=== PATIENT | female | born 1960 | race Caucasian/White ===

== ENCOUNTER 2023-09-11 06:20 | Inpatient (IN) | payer OTHER, SELFPAY ==
--- NOTE | 2023-08-08 08:55 | CM ---
Patient is scheduled for an elective L TKR on 09/11/23. Spoke with patient prior to surgery via telephone. Introduced role of Orthopedic Navigator. Patient reports that she lives alone in a one floor apartment. There are five steps to enter the
building and then 15 steps to her apartment. She currently functions independently. She has a cane. She has never had VN services. PCP is Roxy Naylor.
Discussed orthopedic program and post surgical plans. Reviewed anticipated length of stay and that goal is for her to return home at discharge. Also reviewed outpatient PT. Patient is in agreement with tentative plan and will go directly to
outpatient PT at [facility]. A friend will be staying with her for a week.
Patient will complete online education.
Plan: Orthopedic Navigator will remain available to assist with the care of patient and will reassess discharge needs after surgery.
[2023-08-19 09:43] LABS: Hematocrit 38.3 % (37.0-47.0); Hemoglobin 11.9 g/dL (12.0-16.0); Mean Corp Hgb Conc. 31.1 g/dL (33.0-37.0); Mean Corpuscular Hgb 29.1 pg (27.0-31.0); Mean Corpuscular Volume 93.6 fL (81.0-99.0); Mean Platelet Volume 11.6 fL (7.4-10.4); Platelet Count 187 10^3/uL (130-400); Red Blood Cell Count 4.09 10^6/uL (4.20-5.40); Red Cell Dist. Width 13.9 % (11.5-14.5); White Blood Cell Count 5.3 10^3/uL (4.8-10.8)
[2023-08-19 10:02] VITALS: BMI 24.2
[2023-08-19 10:29] LABS: ALT (SGPT) 21 U/L (0-35); AST (SGOT) 22 U/L (14-36); Albumin 3.6 g/dl (3.5-5.0); Alkaline Phosphatase 73 U/L (38-126); Blood Urea Nitrogen 16 mg/dl (7-17); Calcium 8.8 mg/dl (8.4-10.2); Carbon Dioxide 23 mmol/L (22-30); Chloride 112 mmol/L (98-107); Estimated Creatinine Clearance 87 ml/min; Glucose 110 mg/dl (70-99); Potassium 3.5 mmol/L (3.5-5.1); Sodium 139 mmol/L (135-145); Total Bilirubin 0.3 mg/dl (0.2-1.3); Total Protein 6.2 g/dl (6.3-8.2); eGFR > 60.00
[2023-08-19 11:28] LABS: Glycohemoglobin (HgbA1c) 5.4 % (4.0-5.6)
[2023-08-19 14:55] VITALS: BMI 24.2
[2023-09-11] VITALS (12 sets, daily range): BP systolic 104–149; BP diastolic 49–86; BMI 24.2
[2023-09-11] MEDS: NORMOSOL-R 1000 IV ×2 (08:27→12:29)
[2023-09-11] MEDS: VANCOCIN 200 IV (08:27)
[2023-09-11] MEDS: TYLENOL 650 MG PO ×5 (08:29→23:54)
[2023-09-11] MEDS: CELEBREX 200 MG PO (08:30)
[2023-09-11] MEDS: ROXICODONE 5 MG PO ×2 (12:40→17:36)
--- NOTE | 2023-09-11 13:12 | W.PN.ORTHO ---
Today's Communication / Plan
-
D/c when clinically stable.
Assessment
.
Distal Motor Intact: Yes
Dressing:
Clean, dry and intact.
Assessment:
L knee OA s/p L TKA w/ Dr Israel 09/11/23
DVT prophylaxis - ASA, b/l venous foot pumps
PACs and PVCs with palpitations
Nonsustained ventricular tachycardia, on Atenolol
- Monitor on tele
- Continue Atenolol
Asthma, moderate and persistent, and BAIRON, compliant with CPAP (setting 12) - monitor O2
- IS
- Resume inhalers/nebs
- Resume CPAP HS
GERD and Hiatal hernia - continue PPI therapy
Irritable bowel syndrome with diarrhea - Colace ONLY initially for post-op bowel regimen
TIA per records, on Aspirin - continue ASA but at 325 mg dosing x4 weeks for DVT prevention
Multilevel degenerative disc disease with radiculopathy - resume Gabapentin, Duloxetine
Chronic iron deficiency anemia - non-invasive hgb in AM
Fibromyalgia - monitor pain and adjust meds as indicated
- Consider ER opioids should IR Oxycodone be ineffective
G6PD deficiency - full dose ASA OK per PCP for DVT prevention
MRSA positive nasal screen 08/19/2023 - will add IV Vanco in addition to IV Ancef
- Continue nasal Mupirocin x2 weeks post-op as incision heals
Hyperlipidemia
Mild mitral regurgitation
Mitral valve prolapse
Colon polyps
Hepatic cysts
Nephrolithiasis
Migraines
Probable narcolepsy
Hypothyroidism
Recent UTI, 08/29/2023, treated with Levofloxacin
Osteoporosis
Depression
Plan
.
Surgery / Date: L TKA w/ Dr Israel 09/11/23
DVT Prophylaxis: Aspirin
Activity:
Out of bed.
PT/OT
Discharge Plan: Home w/ Outpatient PT
Subjective
.
.:
Patient resting comfortably in bed.
L knee pain currently minimal and well tolerated.
Denies any new significant complaints.
Vital Signs and Labs
.
Vital Signs and Labs:
Lab Results
08/19/23 09:12
08/19/23 09:12
Temp Pulse Resp BP Pulse Ox
97.4 F 61 15 124/64 100
09/11/23 11:55 09/11/23 12:53 09/11/23 12:53 09/11/23 12:53 09/11/23 12:53
Physical Exam
-
HEENT: No pallor, cyanosis, or jaundice. Throat clear.
NECK: Supple. No JVD.
RESPIRATORY: Lungs clear to auscultation.
CVS: S1, S2 normal. RRR.�
ABDOMEN: Soft, non-tender. No distension.
EXTREMITIES: Strength equal, no calf pain with palpation/dorsiflexion. Calves soft.
MOTOR VEHICLE EMISSIONS INSPECTOR: AOx3. No focal deficits. sequins slinger grossly intact
[2023-09-11] MEDS: VITAMIN B-12 1000 MCG PO (14:19)
[2023-09-11] MEDS: CLARITIN 10 MG PO (14:20)
[2023-09-11] MEDS: VITAMIN D3 (cholecalciferol) 125 MCG PO (14:20)
[2023-09-11] MEDS: SYNTHROID 75 MCG PO (14:20)
[2023-09-11] MEDS: NON-FORMULARY ITEM 150 MG PO (17:34)
[2023-09-11] MEDS: NEURONTIN 300 MG PO ×2 (17:34→21:19)
[2023-09-11] MEDS: ASPIRIN 325 MG PO (17:36)
[2023-09-11] MEDS: CARAFATE 1 GRAM PO ×2 (17:36→21:19)
[2023-09-11] MEDS: ANCEF 5 IV (17:37)
[2023-09-11] MEDS: BENTYL PO (17:38)
--- NOTE | 2023-09-11 18:31 | PTCARENOTE ---
1330 pt arrived to floor TKR L drowsy but awake. RW 20g NormR 100, Aquacell to knee CDI. Regular diet. foot pumps/teds. Retrieved friends. bed low/HOB elevated. orientation to room. call marte in reach. meds sent to Pharmacy. Pt did still have Bentyl
at bedside and took byself after a lengthy discussion about the pills in weekly pill case she had that we did not know what they are. Did notify pharmacy.
[2023-09-11] MEDS: SYMBICORT 160/4.5 MCG INHALER 2 PUFF INH (19:52)
[2023-09-11] MEDS: PROTONIX 40 MG PO (21:19)
[2023-09-11] MEDS: DECADRON 4 MG PO (21:19)
[2023-09-11] MEDS: COLACE 100 MG PO (21:19)
[2023-09-11] MEDS: BACTROBAN 2% OINTMENT 1 APPLIC NASAL (21:21)
[2023-09-11] MEDS: BENTYL 20 MG PO (21:22)
[2023-09-11] MEDS: TENORMIN 50 MG PO (21:22)
[2023-09-11] MEDS: ROXICODONE 15 MG PO (21:23)
[2023-09-12] MEDS: ANCEF 5 IV (02:16)
[2023-09-12] MEDS: VANCOCIN 200 IV (02:25)
[2023-09-12] MEDS: ROXICODONE 10 MG PO ×3 (02:59→11:58)
[2023-09-12 03:00] VITALS: BP 118/46
[2023-09-12 04:52] LABS: Hematocrit 32.7 % (37.0-47.0); Hemoglobin 10.3 g/dL (12.0-16.0)
[2023-09-12] MEDS: TYLENOL PO (05:03)
--- NOTE | 2023-09-12 05:04 | PTCARENOTE ---
could non obtain non invasive due to pts blue gel nail serbian. tried other fingers, toe and ear. H&H ordered and drawn. awaiting results.
[2023-09-12] MEDS: SYNTHROID 75 MCG PO (05:40)
--- NOTE | 2023-09-12 07:31 | W.PN.ORTHO ---
Today's Communication / Plan
-
Plan for discharge home today after PT
Assessment
.
Distal Motor Intact: Yes
Dressing:
Clean, dry and intact.
Assessment:
Doing well post op
Plan
.
Surgery / Date: L TKA w/ Dr Israel 09/11/23
DVT Prophylaxis: Aspirin
Activity:
Out of bed.
PT/OT
Discharge Plan: Home w/ VN
Subjective
.
.:
Patient resting comfortably. OOB yesterday. Doing well today
Vital Signs and Labs
.
Vital Signs and Labs:
Lab Results
09/12/23 04:37
08/19/23 09:12
Temp Pulse Resp BP Pulse Ox
98.6 F 67 18 118/46 100
09/12/23 03:00 09/12/23 03:00 09/12/23 03:00 09/12/23 03:00 09/12/23 03:00
Physical Exam
-
Pulm: nonlabored
CV: regular
LLE: NVI distally. Able to fully extend. Calf soft. Dressing CDI
[2023-09-12] MEDS: SYMBICORT 160/4.5 MCG INHALER 2 PUFF INH (07:34)
[2023-09-12] MEDS: CLARITIN 10 MG PO (07:43)
[2023-09-12] MEDS: PROTONIX 40 MG PO (07:43)
[2023-09-12] MEDS: TYLENOL 650 MG PO ×2 (07:43→11:59)
[2023-09-12] MEDS: NEURONTIN 300 MG PO ×2 (07:43→12:00)
[2023-09-12] MEDS: VITAMIN D3 (cholecalciferol) 125 MCG PO (07:43)
[2023-09-12] MEDS: COLACE 100 MG PO (07:43)
[2023-09-12] MEDS: BACTROBAN 2% OINTMENT 1 APPLIC NASAL (07:43)
[2023-09-12] MEDS: ASPIRIN 325 MG PO (07:43)
[2023-09-12] MEDS: CYMBALTA DELAYED RELEASE 60 MG PO (07:43)
[2023-09-12] MEDS: DECADRON 4 MG PO (07:43)
[2023-09-12] MEDS: BENTYL 20 MG PO ×2 (07:44→12:00)
[2023-09-12] MEDS: MOBIC 15 MG PO (07:44)
[2023-09-12] MEDS: VITAMIN B-12 1000 MCG PO (07:44)
[2023-09-12] MEDS: CARAFATE 1 GRAM PO ×2 (07:44→12:00)
[2023-09-12 07:45] VITALS: BP 131/65
[2023-09-12] MEDS: NON-FORMULARY ITEM 150 MG PO (07:45)
--- NOTE | 2023-09-12 08:31 | CM ---
Addendum entered by Christina Henry 09/12/23 11:13:
Patient worked with PT and OT and did well. She has no concerns about going home. She has updated her friend.
Original Note:
Reviewed chart and held rounds with PT, OT and nursing. Patient admitted as planned for elective L TKR. Met with patient at bedside. Confirmed information previously obtained for assessment. Also discussed discharge plans. The plan is for patient to
return home at discharge. A friend will be staying with her for a week. Patient will go directly to outpatient PT and will go to [facility]. She has an appointment scheduled for Friday, 09/14.
Patient has a rolling walker, cane, raised toilet seat and shower seat.
She will use [facility] pharmacy for discharge prescriptions.
[2023-09-12 09:40] VITALS: PULSE 68; O2SAT 98
--- NOTE | 2023-09-12 09:42 | W.PN.ORTHO ---
Today's Communication / Plan
-
Await PT and OT recs.
D/c later today if remaining clinically stable.
Assessment
.
Distal Motor Intact: Yes
Dressing:
Clean, dry and intact.
Assessment:
L knee OA s/p L TKA w/ Dr Israel 09/11/23
DVT prophylaxis - ASA, b/l venous foot pumps
PACs and PVCs with palpitations
Nonsustained ventricular tachycardia, on Atenolol
- Maintaining NSR w/ occ monomorphic PVCs on tele
- Continue Atenolol
Asthma, moderate and persistent, and BAIRON, compliant with CPAP (setting 12) - O2 stable
- IS
- Resumed inhalers/nebs
- Resumed CPAP HS
GERD and Hiatal hernia - continue PPI therapy
Irritable bowel syndrome with diarrhea - Colace ONLY initially for post-op bowel regimen
TIA per records, on Aspirin - continue ASA but at 325 mg dosing x4 weeks for DVT prevention
Multilevel degenerative disc disease with radiculopathy - resumed Gabapentin, Duloxetine
Chronic iron deficiency anemia - hgb 10.3 POD 1
- Asymptomatic, hemodynamically stable
Fibromyalgia - pain well controlled by POD 1 w/ current pain meds
- Pain mgmt (Juan Miguel) to follow pain post-procedure
G6PD deficiency - full dose ASA OK per PCP for DVT prevention
MRSA positive nasal screen 08/19/2023 - added IV Vanco in addition to IV Ancef
- Continue nasal Mupirocin x2 weeks post-op as incision heals
Hyperlipidemia
Mild mitral regurgitation
Mitral valve prolapse
Colon polyps
Hepatic cysts
Nephrolithiasis
Migraines
Probable narcolepsy
Hypothyroidism
Recent UTI, 08/29/2023, treated with Levofloxacin
Osteoporosis
Depression
Plan
.
Surgery / Date: L TKA w/ Dr Israel 09/11/23
DVT Prophylaxis: Aspirin
Activity:
Out of bed.
PT/OT
Discharge Plan: Home w/ Outpatient PT
Subjective
.
.:
Patient resting comfortably in her bed this AM.
L knee pain overall well tolerated w/ current pain meds.
Denies any new significant complaints.
Eager for potential d/c today.
Vital Signs and Labs
.
Vital Signs and Labs:
Lab Results
09/12/23 04:37
08/19/23 09:12
Temp Pulse Resp BP Pulse Ox
98.5 F 66 16 131/65 95
09/12/23 07:45 09/12/23 07:45 09/12/23 07:45 09/12/23 07:45 09/12/23 08:00
Physical Exam
-
HEENT: No pallor, cyanosis, or jaundice. Throat clear.
NECK: Supple. No JVD.
RESPIRATORY: Lungs clear to auscultation.
CVS: S1, S2 normal. RRR.�
ABDOMEN: Soft, non-tender. No distension.
EXTREMITIES: Mild post-op L knee edema. Strength equal, no calf pain with palpation/dorsiflexion. Calves soft.
FUTURES TRADER: AOx3. No focal deficits. control analyst grossly intact
[2023-09-12 10:42] VITALS: BP 111/64
--- NOTE | 2023-09-12 11:16 | W.DS.TRANS ---
DC Summary - Car Mechanic
-
Discharge Instructions:
Discharge Diagnosis/Procedures L knee OA s/p L TKA w/ Dr Israel 09/11/23
Diet Regular
Activity As tolerated,With Walker
Driving Restrictions Not until seen by your Dr
Bathing Restrictions OK to Shower
Other Services PT
Wound Care Dressing to be removed 1 week post-surgery.
Coxsackie to be removed in 2 weeks at follow-up
appointment with surgeon's office.
Instructions:
Stand-Alone Forms: Total Hip/Knee Replacement D/C
Changes to Home Medications: Yes
Discharge Medications:
DC Medications w/original date entered in [employer]
atenolol 50 mg tablet 50 mg PO HS 08/03/10
gabapentin 300 mg capsule 300 mg PO QID 10/18/10
albuterol sulfate 1.25 mg/3 mL solution for nebulization 1.25 mg inhalation Q6HPRN PRN shortness of breath, wheezing 08/13/23
albuterol sulfate 90 mcg/actuation aerosol inhaler 1 inh inhalation Q6HPRN PRN shortness of breath, wheezing 08/13/23
armodafinil 150 mg tablet 150 mg PO DAILY 08/13/23
budesonide-formoterol HFA 160 mcg-4.5 mcg/actuation aerosol inhaler (Symbicort) 2 puff inhalation BID 08/13/23
cyanocobalamin (vitamin B-12) 1,000 mcg tablet 1,000 mcg PO DAILY 08/13/23
denosumab 60 mg/mL subcutaneous syringe (Prolia) 60 mg SC [id number] 08/13/23
dicyclomine 20 mg tablet 20 mg PO QID 08/13/23
duloxetine 60 mg capsule,delayed release 60 mg PO DAILY 08/13/23
erenumab-aooe 140 mg/mL subcutaneous auto-injector (Aimovig Autoinjector) 140 mg SC QMONTH 08/13/23
esomeprazole magnesium 40 mg capsule,delayed release 40 mg PO BID 08/13/23
levothyroxine 75 mcg tablet 75 mcg PO DAILY 08/13/23
sumatriptan 85 mg-naproxen 500 mg tablet (Treximet) 1 tab PO DAILYPRN PRN migraines 08/13/23
topiramate 200 mg capsule,extended release 24 hr (Trokendi XR) 200 mg PO DAILY 08/13/23
mxhdvbxyqv-wrtqrlpdvhjmh-ijohkdlt 50 mg-325 mg-40 mg tablet 1 tab PO Q4H PRN migraines 08/19/23
cholecalciferol (vitamin D3) 125 mcg (5,000 unit) tablet 125 mcg PO DAILY 08/19/23
elderberry fruit 200 mg capsule 200 mg PO DAILY 08/19/23
multivitamin 1 tab PO DAILY 08/19/23
mupirocin 2 % topical ointment 1 applic intranasal BID #1 tube 08/19/23
rimegepant 75 mg disintegrating tablet (Nurtec ODT) 75 mg PO ONCE PRN migraines 08/19/23
fluticasone propionate 50 mcg/actuation nasal spray,suspension 1 spray intranasal DAILY 09/11/23
loratadine 10 mg tablet (Claritin) 10 mg PO DAILY 09/11/23
sucralfate 1 gram tablet 1 g PO QID 09/11/23
acetaminophen 500 mg tablet (Tylenol Extra Strength) 1,000 mg (2 x 500 mg) PO Q6H #60 tabs 09/12/23
aspirin 325 mg tablet 325 mg PO DAILY #30 tabs 09/12/23
dexamethasone 4 mg tablet 4 mg PO BID #5 tabs 09/12/23
docusate sodium 100 mg capsule 100 mg PO BID #30 caps 09/12/23
meloxicam 15 mg tablet 15 mg PO DAILY #30 tabs 09/12/23
ondansetron HCl 4 mg tablet 4 mg PO Q6H PRN nausea and vomiting #30 tabs 09/12/23
oxycodone 10 mg tablet 10 mg PO Q4H PRN severe pain #120 tabs 09/12/23
sennosides 8.6 mg tablet (Senna Laxative) 17.2 mg (2 x 8.6 mg) PO BID PRN constipation #30 tabs 09/12/23
Home Medication Changes
acetaminophen 500 mg tablet (Tylenol Extra Strength) 1,000 mg (2 x 500 mg) PO Q6H #60 tabs 09/12/23
aspirin 325 mg tablet 325 mg PO DAILY #30 tabs 09/12/23
dexamethasone 4 mg tablet 4 mg PO BID #5 tabs 09/12/23
docusate sodium 100 mg capsule 100 mg PO BID #30 caps 09/12/23
meloxicam 15 mg tablet 15 mg PO DAILY #30 tabs 09/12/23
ondansetron HCl 4 mg tablet 4 mg PO Q6H PRN nausea and vomiting #30 tabs 09/12/23
oxycodone 10 mg tablet 10 mg PO Q4H PRN severe pain #120 tabs 09/12/23
sennosides 8.6 mg tablet (Senna Laxative) 17.2 mg (2 x 8.6 mg) PO BID PRN constipation #30 tabs 09/12/23
Pending Results: No
== END 2023-09-12 12:52 | disposition home or self-care (01) | DRG 470 ==
LOC: 2 SOUTH 06:20
PROVIDERS: ADMITTING PHYSICIAN Orthopaedic Surgery; FAMILY PHYSICIAN Nurse Practitioner
PROC: 0SRD0J9 Replacement of Left Knee Joint with Synthetic Substitute, Cemented, Open Approach (ICD-10-PCS; 2023-09-11)
DX: M17.12 Unilateral primary osteoarthritis, left knee (principal); I47.20 Ventricular tachycardia, unspecified; J45.40 Moderate persistent asthma, uncomplicated; K21.9 Gastro-esophageal reflux disease without esophagitis; K58.0 Irritable bowel syndrome with diarrhea; D75.A Glucose-6-phosphate dehydrogenase (G6PD) deficiency without anemia; E78.5 Hyperlipidemia, unspecified; I49.1 Atrial premature depolarization; I49.3 Ventricular premature depolarization; D50.9 Iron deficiency anemia, unspecified; M79.7 Fibromyalgia
CPT/HCPCS: 36415; 73560; 80053; 83036; 85014; 85018; 85027; 86850; 86900; 86901; 87070; 87147; 93005; 94640; 97110; 97116; 97162; 97166; 97530; 97535; C1713; C1776

== ENCOUNTER → 2023-11-04 06:26 | Day surgery (SDC) | payer OTHER, SELFPAY | LOC: GI 06:26 | PROVIDERS: ATTENDING PHYSICIAN Internal Medicine Gastroenterology | DX: Z12.11 Encounter for screening for malignant neoplasm of colon (principal); K57.30 Diverticulosis of large intestine without perforation or abscess without bleeding; K64.8 Other hemorrhoids; D51.0 Vitamin B12 deficiency anemia due to intrinsic factor deficiency; R12 Heartburn; K44.9 Diaphragmatic hernia without obstruction or gangrene; K31.89 Other diseases of stomach and duodenum; K22.89 Other specified disease of esophagus; K29.50 Unspecified chronic gastritis without bleeding; K31.A12 Gastric intestinal metaplasia without dysplasia, involving the body (corpus); K31.A13 Gastric intestinal metaplasia without dysplasia, involving the fundus; Z86.010 Personal history of colon polyps | CPT/HCPCS: 43239; G0105; 88305; 88312; 88342 ==

== ENCOUNTER 2023-12-03 21:43 | Emergency (ER) | payer OTHER, SELFPAY ==
[2023-12-03 21:47] VITALS: BP 124/68
--- NOTE | 2023-12-03 22:50 | ED.GENMED ---
History of Present Illness
General
Chief Complaint: Musculo-Skeletal Complaint
Source: patient
Exam Limitations: none
Time Seen by Provider: 12/03/23 22:21
History of Present Illness
History of Present Illness:
This is a 63 year old female that comes in with c/o right knee pain. States that she had her left knee replaced on September 11, 2023. States that she started to have some discomfort in the right knee. State that she also had fluid drained form the
right knee Twice. States that today she was at work and when she would move she would get this sudden discomfort in the right knee. States that after work she went to [employer] and she was walking cross the parking lot and she felt like her right knee
was going to give out. State that she was by her car so she did not fall. Denies any injuries or falls. Denies any fever, chills nausea, vomiting, diarrhea.
Past History
Past History
ED Past Medical History: Asthma, CVA (TIA), GERD (Celiac disease), Hypercholesterolemia, Hypothyroidism, Other (migraine headaches, and mini strokes, back pain, neck pain, tingling in the extremities, fractures, anemia, and G6PD deficient, Sleep
apnea, IBS, Celiac disease renal calculus) and Other (Iron Def anemia, B12 def, gastritis, )
ED Past Surgical History: Orthopedic (right ad left knee surgery, Right elbow surgery, Left and right carpal tunnel. right foot ORIF, Lumbar laminectomy. Left total knee replacement, ), Tonsilectomy and Other (arthroscopy of the knee, right elbow
surgery, carpal tunnel repair, left knee arthroscopy, multiple endoscopies, right foot open reduction and internal fixation, and lumbar laminectomy)
Social History
Tobacco: Non-smoker
Alcohol: Occasional
Drug: None
Personal: Single
Living: with family
Employment: Employed
Family History
Family History: Other
Review of Systems
Review of Systems
All Other Systems: ROS reviewed and negative except as documented in HPI and ROS
Constitutional: Reports no symptoms; Denies fever or chills
EENT: Reports no symptoms
Respiratory: Reports no symptoms
Cardiac: Reports no symptoms
ABD/GI: Reports no symptoms; Denies abdominal pain, nausea, vomiting or diarrhea
: Reports no symptoms
Musculoskeletal: Reports joint pain (Right knee pain)
Skin: Reports no symptoms
Neurological: Reports no symptoms
Psychiatric: Reports no symptoms
Phy Exam
General Physical Exam
General Presentation: well appearing and no apparent distress
General age: appears stated age
General Skin: warm and dry
General Habitus: normal
General Mental: alert
General Hydration: appears well hydrated
Eye Exam
Eye Exam: EOMI
Musculoskeletal Exam
Musculoskeletal Exam: full ROM and other (tenderness with palpation distal right knee medial and lateral with palpation)
Skin Exam
Skin Exam: normal color, warm/dry, no rash and no petechia
Psychiatric Exam
Psychiatric Exam: normal mood/affect
Course
Orders/Labs/Results
Orders:
Orders
12/03/23 21:53
Knee, Right 4 or More Views [CR Knee- Right 4 Or More View*] Urgent
Comment:
Reason For Exam: injury
12/03/23 22:50
Jagdeep Wrap Right-Treatment ONCE
Vital Signs
Initial and Last Documented VS:
Initial Vital Signs
Temp Pulse Resp BP Pulse Ox
98.4 F 72 20 124/68 99
12/03/23 21:47 12/03/23 21:47 12/03/23 21:47 12/03/23 21:47 12/03/23 21:47
Last Documented Vital Signs
Temp Pulse Resp BP Pulse Ox
98.4 F 72 20 124/68 99
12/03/23 21:47 12/03/23 21:47 12/03/23 21:47 12/03/23 21:47 12/03/23 21:47
MDM/Problems Addressed
Differential Diagnosis Includes:
Right knee degenerative changes.
MDM/Problems Addressed:
This is a 63 year old female that comes in with c/o right knee pain. Denies any falls or injury.
Will get X-ray.
Explained to patient that the x-ray was negative for any fractures or dislocation. Will give patient an jagdeep bandage for support and patient is to follow up with the ergonomic specialist. Patient can use Tylenol 1000mg every 6 hours for pain. She
can also use Ibuprofen 600mg every 6 hours with food for pain. Return with any concerns.
Chronic conditions affecting care:
NA
Acute Exacerbation and/or Progression of Chronic Illness:
NA
*Radiology
Radiology exam reviewed: radiology read reviewed (Right knee-Overall moderate tricompartmental osteoarthritis. )
*Pulse Oximetry
Patient hypoxic: no
*EKG
Interpreted by ED Provider?: NA
Rate: EKG- N/A
*Instrumentation And Controls Technician Interpretation
Rate: Instrumentation And Controls Technician- N/A
*Critical Care Note
Total Time (30-74mins, 75-104mins- exclusive of procedures): Not Applicable
ED Attending Note
-
Portions of this chart may have been created with voice recognition software.� Occasional wrong word or��sound alike� substitutions may have occurred due to the inherent limitations of voice recognition software.
Discharge Plan
Departure
Patient Disposition: Home (Routine Discharge)
Date of Disposition: 12/03/23
Time of Disposition: 22:59
Patient with high blood pressure during this ER visit?: No
Condition: Good
Covid-19: Not Applicable
Discharge Problem:
Acute knee pain, Osteoarthritis of right knee
Instructions: Knee Pain (DC)
Prescriptions:
No Action
atenolol 50 MG tablet
50 mg PO HS
gabapentin 300 MG capsule
300 mg PO QID
albuterol sulfate 1.25 mg/3 mL Solution For Nebulization
1.25 mg INHALATION Q6HPRN PRN (Reason: shortness of breath, wheezing)
cyanocobalamin (vitamin B-12) 1,000 mcg Tablet
1,000 mcg PO DAILY
levothyroxine 75 mcg Tablet
75 mcg PO DAILY
dicyclomine 20 mg Tablet
20 mg PO QID
esomeprazole magnesium 40 mg Capsule,Delayed Release(Dr/Ec)
40 mg PO BID
albuterol sulfate 90 mcg/actuation Hfa Aerosol Inhaler
1 inh INHALATION Q6HPRN PRN (Reason: shortness of breath, wheezing)
duloxetine 60 mg Capsule,Delayed Release(Dr/Ec)
60 mg PO DAILY
budesonide-formoterol [Symbicort] 160-4.5 mcg/actuation Hfa Aerosol Inhaler
2 puff INHALATION BID
armodafinil 150 mg Tablet
150 mg PO DAILY
sumatriptan-naproxen [Treximet] 85-500 mg Tablet
1 tab PO DAILYPRN PRN (Reason: migraines)
Prolia 60 mg/mL Syringe
60 mg SC [id number]
topiramate [Trokendi XR] 200 mg Capsule,Extended Release 24hr
200 mg PO DAILY
Aimovig Autoinjector 140 mg/mL Auto-Injector
140 mg SC QMONTH
irwegkmrgx-gmnnzyiaeooyy-drct 50-325-40 mg Tablet
1 tab PO Q4H PRN (Reason: migraines)
multivitamin Tablet
1 tab PO DAILY
elderberry fruit 200 mg Capsule
200 mg PO DAILY
cholecalciferol (vitamin D3) 125 mcg (5,000 unit) Tablet
125 mcg PO DAILY
Nurtec ODT 75 mg Tablet,Disintegrating
75 mg PO ONCE PRN (Reason: migraines)
mupirocin 2 % ointment
1 applic intranasal BID Qty: 1 0RF
Patient Comments:
Started treatment on Friday, taking BID. Last done at home this morning.
sucralfate 1 gram Tablet
1 g PO QID
fluticasone propionate 50 mcg/actuation [place],Suspension
1 spray INTRANASAL DAILY
loratadine [Claritin] 10 mg Tablet
10 mg PO DAILY
aspirin 325 mg Tablet
325 mg PO DAILY Qty: 30 0RF
Rx Instructions:
Take daily x4 weeks for blood clot prevention; then resume Aspirin 81 mg daily.
dexamethasone 4 mg Tablet
4 mg PO BID Qty: 5 0RF
Rx Instructions:
Restart night of discharge and continue twice a day until finished.
Take with food.
docusate sodium 100 mg Capsule
100 mg PO BID Qty: 30 0RF
meloxicam 15 mg Tablet
15 mg PO DAILY Qty: 30 0RF
Rx Instructions:
Take with food.
DO NOT take within 2 hours of Aspirin.
sennosides [Senna Laxative] 8.6 mg Tablet
17.2 mg PO BID PRN (Reason: constipation) Qty: 30 0RF
Rx Instructions:
Add to bowel regimen of Colace should no bowel movement occur within 72 hours post-surgery.
ondansetron HCl 4 mg tablet
4 mg PO Q6H PRN (Reason: nausea and vomiting) Qty: 30 0RF
acetaminophen [Tylenol Extra Strength] 500 mg tablet
1,000 mg PO Q6H Qty: 60 0RF
Rx Instructions:
DO NOT exceed >4000 mg daily.
oxycodone 10 mg tablet
10 mg PO Q4H PRN (Reason: severe pain) Qty: 120 0RF
Rx Instructions:
1 tab for severe pain.
Dx total joint.
Referrals:
Leif Israel MD [Active] - Call in 1-3 days for appt
Roxy Naylor CRNP [Family Provider] -
Activity Restrictions/Additional Instructions:
As discussed, your X-ray is negative for any fractures or dislocation. There is some osteoarthritis. Please follow up with Dr. Israel for further evaluation. Use the jagdeep to help give your support when you are up walking around. Ice to help with
pain. You may also use Tylenol 1000mg every 6 hours for pain and alternate with Ibuprofen 600mg every 6 hours with food. IF YOU HAVE ANY OTHER CONCERNS PLEASE RETURN TO THE EMERGENCY ROOM.
Interventions
Interventions:
*Risk Screen - Suicide Last Done: 12/03/23 21:47
*General Assessment Last Done: 12/03/23 21:47
*Neglect/Abuse Screening Last Done: 12/03/23 21:47
ED- Fall Risk Assessment Last Done: 12/03/23 21:47
*ED COVID-19 Vaccine History Last Done: 12/03/23 21:47
ED-Musculoskeletal Assessment Last Done: 12/03/23 22:42
Discharge Date and Time
Print Language: TURKISH
[2023-12-03] MEDS: TYLENOL 1000 MG PO (23:00)
== END 2023-12-03 23:11 | disposition home or self-care (01) ==
LOC: EMR 21:43
PROVIDERS: EMERGENCY PHYSICIAN Emergency Medicine; FAMILY PHYSICIAN Nurse Practitioner
DX: M17.11 Unilateral primary osteoarthritis, right knee (principal)
CPT/HCPCS: 99283; 73564

== ENCOUNTER 2024-07-02 06:01 | Inpatient (IN) | payer OTHER, SELFPAY ==
[2024-06-17 11:14] LABS: Hematocrit 40.4 % (37.0-47.0); Hemoglobin 12.5 g/dL (12.0-16.0); Mean Corp Hgb Conc. 30.9 g/dL (33.0-37.0); Mean Corpuscular Hgb 29.3 pg (27.0-31.0); Mean Corpuscular Volume 94.6 fL (81.0-99.0); Mean Platelet Volume 11.1 fL (7.4-10.4); Platelet Count 192 10^3/uL (130-400); Red Blood Cell Count 4.27 10^6/uL (4.20-5.40); Red Cell Dist. Width 14.2 % (11.5-14.5); White Blood Cell Count 4.7 10^3/uL (4.8-10.8)
[2024-06-17 11:27] LABS: ALT (SGPT) 16 U/L (0-35); AST (SGOT) 20 U/L (14-36); Albumin 3.8 g/dl (3.5-5.0); Alkaline Phosphatase 78 U/L (38-126); Blood Urea Nitrogen 18 mg/dl (7-17); Calcium 8.6 mg/dl (8.4-10.2); Carbon Dioxide 24 mmol/L (22-30); Chloride 107 mmol/L (98-107); Glucose 112 mg/dl (70-99); Sodium 141 mmol/L (135-145); Total Bilirubin 0.5 mg/dl (0.2-1.3); Total Protein 6.5 g/dl (6.3-8.2); eGFR > 60.00
[2024-06-17 14:23] LABS: Glycohemoglobin (HgbA1c) 5.2 % (4.0-5.6)
[2024-06-17 14:25] VITALS: BMI 23.0
[2024-06-24 13:32] VITALS: BMI 23.0
[2024-07-02] VITALS (34 sets, daily range): BP systolic 66–138; BP diastolic 41–87; PULSE 73; O2SAT 95
[2024-07-02] MEDS: TYLENOL 650 MG PO ×5 (06:28→23:08)
[2024-07-02] MEDS: MOBIC 15 MG PO (06:28)
[2024-07-02] MEDS: VANCOCIN 200 IV ×2 (06:35→17:15)
[2024-07-02] MEDS: NORMOSOL-R/PLASMALYTE-A 1000 IV ×2 (06:43→14:45)
[2024-07-02] MEDS: ROXICODONE 5 MG PO (11:37)
--- NOTE | 2024-07-02 12:28 | W.PN.UPDATE ---
Update Note
Progress Note Update
R knee OA s/p R TKA w/ Dr Israel 07/02/24
- s/p L TKA w/ Dr Israel 09/11/23
DVT prophylaxis - ASA, b/l venous foot pumps
PACs and PVCs with palpitations
Nonsustained ventricular tachycardia, on Atenolol
- Monitor on tele
- Continue Atenolol
Asthma, moderate and persistent, and BAIRON, compliant with CPAP (setting 12) - monitor O2
- IS
- Resume inhalers/nebs
- Resume CPAP HS
GERD and Hiatal hernia - continue PPI therapy
Irritable bowel syndrome with diarrhea - Colace ONLY initially for post-op bowel regimen
TIA per records, on Aspirin - continue ASA but at 325 mg dosing x4 weeks for DVT prevention
Multilevel degenerative disc disease with radiculopathy - resume Duloxetine
- Substitute Lyrica for Gabapentin given probable tolerance
Chronic iron deficiency anemia - non-invasive hgb in AM
Fibromyalgia - monitor pain and adjust meds as indicated
- Consider ER opioids should IR Oxycodone be ineffective
G6PD deficiency - full dose ASA OK per PCP previously for DVT prevention
MRSA positive nasal screen 08/19/2023 - will add IV Vanco in addition to IV Ancef
- Continue nasal Mupirocin x2 weeks post-op as incision heals
Hyperlipidemia
Mild mitral regurgitation
Mitral valve prolapse
Colon polyps
Hepatic cysts
Nephrolithiasis
Migraines
Narcolepsy
Hypothyroidism
Recent UTI, 08/29/2023, treated with Levofloxacin
Osteoporosis
Depression
--- NOTE | 2024-07-02 14:23 | PTCARENOTE ---
Pt arrived to 2S in bed. Full assessment completed. Neurovascular assessment WDL. R knee DSG C/D/I. Pt c/o urge to urinate, assisted to bathroom Ax1 with the RW, gait steady. IVF infusing per order. Telemetry applied. Bed locked and in the lowest
position, safety maintained. Pt working with PT/OT at this time.
[2024-07-02] MEDS: BENTYL PO ×2 (14:35→14:36)
[2024-07-02] MEDS: TYLENOL PO (14:36)
[2024-07-02] MEDS: PROTONIX PO (14:36)
[2024-07-02] MEDS: SYNTHROID PO (14:36)
[2024-07-02] MEDS: CYMBALTA DELAYED RELEASE 60 MG PO (14:42)
[2024-07-02] MEDS: LYRICA 75 MG PO ×2 (14:42→19:49)
[2024-07-02] MEDS: VITAMIN D3 (cholecalciferol) 125 MCG PO (14:42)
[2024-07-02] MEDS: VITAMIN B-12 1000 MCG PO (14:42)
[2024-07-02] MEDS: CLARITIN 10 MG PO (14:43)
[2024-07-02] MEDS: ROXICODONE 10 MG PO (14:48)
--- NOTE | 2024-07-02 15:37 | W.PN.UPDATE ---
Update Note
Progress Note Update
Patient stable postop. Has been OOB and in the hallway. VSS. Pulm: nonlaobored. CV: regular. Abd: benign. RLE: NVI distally. Calf soft. Able to fully extend. Postop xray as expected. ASA for DVT prophylaxis. Plan for discharge home
tomorrow with outpatient PT.
[2024-07-02] MEDS: ANCEF 5 IV ×2 (16:08→22:54)
[2024-07-02] MEDS: BENTYL 20 MG PO ×2 (17:15→22:40)
[2024-07-02] MEDS: ASPIRIN 325 MG PO (17:15)
[2024-07-02] MEDS: DECADRON 4 MG PO (19:49)
[2024-07-02] MEDS: COLACE 100 MG PO (19:49)
[2024-07-02] MEDS: PROTONIX 40 MG PO (19:50)
[2024-07-02] MEDS: BACTROBAN 2% OINTMENT 1 APPLIC NASAL (22:54)
[2024-07-03] VITALS (7 sets, daily range): BP systolic 88–138; BP diastolic 52–62; PULSE 82; O2SAT 100
[2024-07-03] MEDS: NSS 500 IV (00:16)
--- NOTE | 2024-07-03 02:20 | W.PN.UPDATE ---
Update Note
Progress Note Update
RN reported PRODUCT SAFETY EXPERT BP soft 86/41 HR 70. Patient seen and evaluated, asymptomatic, states she hasn't been drinking enough. Surgical site scant amount of blood noted which is unchanged from previous shift, otherwise CDI. will order nss 500 cc bolus.
Recheck BP 110/62, patient resting in bed, no complaints at this time.
--- NOTE | 2024-07-03 02:21 | PTCARENOTE ---
2300 Patient BP 86/[address] Quique Watson Atenolol on hold patient is not symptomatic and surgical site looks good. bolus given and BP increased to 110/62. will continue to monitor
[2024-07-03] MEDS: ROXICODONE 10 MG PO ×3 (04:23→13:09)
[2024-07-03] MEDS: TYLENOL 650 MG PO ×3 (04:25→12:17)
[2024-07-03] MEDS: SYNTHROID 75 MCG PO (06:11)
--- NOTE | 2024-07-03 08:05 | W.PN.ORTHO ---
Today's Communication / Plan
-
64-year-old female status post right total knee arthroplasty postoperative day [address] Israel
-Asymptomatic hypotension overnight improved with fluid bolus and presently resolved. Will continue with fluid hydration p.o.
-PT/OT/discharge planning: Doing well with inpatient physical therapy. Plan for discharge to home with outpatient physical therapy beginning Friday
-DVT PPx: Aspirin, early ambulation, sequential compression devices in the hospital
-Diet: Regular
-Pain controlled with current regimen
Pending course of today plan for discharge; discharge information up-to-date. Medications received at preoperative history and physical appointment
Assessment
.
Distal Motor Intact: Yes
Dressing:
Clean, dry and intact. Minimal central strikethrough
Assessment:
Postoperative x-rays show status post right total knee arthroplasty patellar resurfacing without evidence of hardware or osseous complication
Plan
.
Surgery / Date: 07/02/[address] Israel
DVT Prophylaxis: Aspirin
Activity:
Out of bed.
PT/OT
Discharge Plan: Home w/ Outpatient PT
Subjective
.
.:
Patient resting comfortably. She reports asymptomatic hypertension and evening which was improved with a bolus of fluid
Vital Signs and Labs
.
Vital Signs and Labs:
Lab Results
06/17/24 10:35
06/17/24 10:35
Temp Pulse Resp BP Pulse Ox
97.9 F 75 16 120/59 96
07/03/24 08:00 07/03/24 08:00 07/03/24 08:00 07/03/24 08:00 07/03/24 08:00
[2024-07-03] MEDS: BENTYL 20 MG PO (08:34)
[2024-07-03] MEDS: LYRICA 75 MG PO (08:39)
[2024-07-03] MEDS: MOBIC 15 MG PO (08:39)
[2024-07-03] MEDS: COLACE 100 MG PO (08:40)
[2024-07-03] MEDS: DECADRON 4 MG PO (08:40)
[2024-07-03] MEDS: PROTONIX 40 MG PO (08:40)
[2024-07-03] MEDS: CLARITIN 10 MG PO (08:40)
[2024-07-03] MEDS: ASPIRIN 325 MG PO (08:41)
[2024-07-03] MEDS: VITAMIN D3 (cholecalciferol) 125 MCG PO (08:41)
[2024-07-03] MEDS: VITAMIN B-12 1000 MCG PO (08:41)
[2024-07-03] MEDS: CYMBALTA DELAYED RELEASE 60 MG PO (08:41)
[2024-07-03] MEDS: BACTROBAN 2% OINTMENT 1 APPLIC NASAL (12:17)
--- NOTE | 2024-07-03 12:58 | PTCARENOTE ---
had lite breakfast, thus far is tolerating. no N/V. comfortable. walking self to bathroom
--- NOTE | 2024-07-03 14:39 | CM ---
Initial assessment completed with pt at bedside.
Pt is a 64yr old female admitted with R TKA.
At baseline, pt lives alone in a 1 floor apartment with 5 steps into the building and 15 steps to her apartment.
Pt had previous L TKA in 06/2023 and dc with Outpt therapy services.
Prior to this admission, pt is indep.
Pt has cane, RW, raised toilet seat, and shower chair
PCP; Roxy Naylor
Pharm; [facility]
PLAN; DC to home with outpt therapy services
== END 2024-07-03 13:59 | disposition home or self-care (01) | DRG 470 ==
LOC: 2 SOUTH 06:01
PROVIDERS: ADMITTING PHYSICIAN Orthopaedic Surgery; FAMILY PHYSICIAN Nurse Practitioner
PROC: 0SRC0J9 Replacement of Right Knee Joint with Synthetic Substitute, Cemented, Open Approach (ICD-10-PCS; 2024-07-02)
DX: M17.11 Unilateral primary osteoarthritis, right knee (principal)
CPT/HCPCS: 36415; 73560; 80053; 83036; 85027; 87070; 93005; 97110; 97162; 97166; 97535

== ENCOUNTER 2025-02-10 21:08 | Emergency (ER) | payer OTHER, SELFPAY ==
[2025-02-10 21:13] VITALS: BP 152/76
--- NOTE | 2025-02-10 22:42 | ED.GENMED ---
History of Present Illness
General
Chief Complaint: Back Pain
Source: patient
Exam Limitations: none
Time Seen by Provider: 02/10/25 22:16
Nursing documentation reviewed up to this point in time: agreed with
History of Present Illness
History of Present Illness:
Patient is a 64-year-old female who presents to emergency department with right lower back pain. Patient reports 2 weeks of progressively worsening pain which seems to originate in her right buttock and radiates down her right lateral leg into her
calf. Pain is worse with prolonged standing and certain movements. She also feels that she has been developing some weakness in the right leg over the past week.
Patient denies any fever or chills. No saddle paresthesias, loss of bowel/bladder control, or numbness in bilateral lower extremities. She denies any visual complaints, headache, chest pain, or shortness of breath.
She has been taking NSAIDs, Tylenol, and Percocet at home with temporary relief in pain.
Patient denies any known inciting injury or trauma. However�benoit does have a lengthy history of chronic back pain and has had spinal surgery in the past. Fortunately�benoit does have an appointment with her spinal surgeon scheduled this coming Friday.
Past History
Past History
ED Past Medical History: Asthma, CVA (TIA), GERD (Celiac disease), Hypercholesterolemia, Hypothyroidism, Other (migraine headaches, and mini strokes, back pain, neck pain, tingling in the extremities, fractures, anemia, and G6PD deficient, Sleep
apnea, IBS, Celiac disease renal calculus) and Other (Iron Def anemia, B12 def, gastritis, )
ED Past Surgical History: Orthopedic (right ad left knee surgery, Right elbow surgery, Left and right carpal tunnel. right foot ORIF, Lumbar laminectomy. Left total knee replacement, ), Tonsilectomy and Other (arthroscopy of the knee, right elbow
surgery, carpal tunnel repair, left knee arthroscopy, multiple endoscopies, right foot open reduction and internal fixation, and lumbar laminectomy)
Social History
Tobacco: Non-smoker
Alcohol: Occasional
Drug: None
Personal: Single
Living: with family
Employment: Employed
Family History
Family History: Other
Review of Systems
Review of Systems
Allergies reviewed?: Yes
All Other Systems: ROS reviewed and negative except as documented in HPI and ROS
Phy Exam
Physical Exam
Physical Exam:
Vitals: Hypertensive, otherwise vital signs stable. Afebrile
General: Patient is resting comfortably on examination.
Skin: Warm and dry, no rashes or lesions
Head: Normocephalic, atraumatic
Eyes: Sclera nonicteric. EOMs intact. No nystagmus.
Throat: Protecting airway
Neck: Normal ROM, no cervical spine tenderness, no meningismus
Cardiac: Regular rate and rhythm, no murmurs. 2+ palpable radial pulses bilaterally
Pulm: Normal respiratory effort, no wheezes, rales, rhonchi heard on exam
Abdomen: Abdomen soft and nontender.
Back: No areas of obvious ecchymoses or rash. Point tenderness in right buttock near SI joint. Positive straight leg raise on right side.
Extremities: No evidence of cyanosis or edema. 2+ palpable DP pulses bilateral. Strength 4/5 in RLE. Strength 5/5 in LLE. Sensation intact
Neuro: AAOx3. No focal neurologic deficits.
Psychiatric: Normal affect.
Course
Orders/Labs/Results
Orders:
Orders
02/10/25 22:41
Acetaminophen [Tylenol] 650 mg PO NOW STA
Ketorolac [Toradol] 15 mg IM NOW STA
Lumbar Spine, 2 or 3 View [CR Lumbar Spine 2 Or 3 Views] Urgent
Comment:
Reason For Exam: Right buttock pain
02/10/25 23:35
Tramadol HCl [Ultram] 50 mg PO NOW STA
Vital Signs
Initial and Last Documented VS:
Initial Vital Signs
Temp Pulse Resp BP Pulse Ox
98.2 F 77 16 152/76 97
02/10/25 21:13 02/10/25 21:13 02/10/25 21:13 02/10/25 21:13 02/10/25 21:13
Last Documented Vital Signs
Temp Pulse Resp BP Pulse Ox
98.2 F 72 17 130/72 97
02/11/25 02:04 02/11/25 02:04 02/11/25 02:04 02/11/25 02:04 02/11/25 02:04
MDM/Problems Addressed
Differential Diagnosis Includes:
Not limited to: Radicular pain/sciatica, lumbar muscle strain, spinal stenosis, etc.
MDM/Problems Addressed:
64-year-old female with progressively worsening right lower back pain radiating into right leg. Some associated mild weakness of right leg however no difficulty ambulating. No infectious symptoms or urinary symptoms. No other neurological symptoms
including numbness of extremities, bowel/bladder incontinence, saddle paresthesia. No recent trauma. She does have lengthy history of chronic back pain and follows with spinal surgeon.
Vitals and physical exam as above.
Clinical picture most consistent with musculoskeletal back pain with radicular component. No evidence of acute neurological emergency or vascular catastrophe. Do not suspect infectious process.
ED plan: lumbar spine x-ray, treat pain and reassess.
Update: I reviewed xray of lumbar spine without evidence of acute fracture. Patient was given Toradol, Tylenol and a tramadol in emergency department. Her pain is down to a 3/10 and she has been able to ambulate steadily.
Feel patient is appropriate for discharge home with scheduled spine surgeon appointment on Friday. Will start course of steroids for suspected radicular component. Will send prescription for tramadol. Strict return precautions discussed. Patient
comfortable with plan.
Chronic conditions affecting care:
N/A
Acute Exacerbation and/or Progression of Chronic Illness:
N/A
*Radiology
Radiology exam reviewed: preliminary read by ED provider (Lumbar x-ray reviewed by me-no acute fracture)
*Pulse Oximetry
SaO2: 97
Oxygen Mode of Delivery: Room air
Patient hypoxic: no
*EKG
Interpreted by ED Provider?: NA
*Panel Edge Sealer Interpretation
Rate: Panel Edge Sealer- N/A
*Critical Care Note
Total Time (30-74mins, 75-104mins- exclusive of procedures): Not Applicable
ED Attending Note
-
Portions of this chart may have been created with voice recognition software.� Occasional wrong word or��sound alike� substitutions may have occurred due to the inherent limitations of voice recognition software.
Discharge Plan
Departure
Patient Disposition: Home (Routine Discharge)
Date of Disposition: 02/11/25
Time of Disposition: 01:08
Patient with high blood pressure during this ER visit?: Yes
Condition: Good
Discharge Problem:
Low back pain radiating to right leg
Instructions: Low Back Pain (DC), Radiculopathy (DC), BLOOD PRESSURE
Prescriptions:
New
prednisone 20 mg tablet
40 mg PO DAILY 5 Days Qty: 10 0RF
tramadol 50 mg tablet
50 mg PO Q6H PRN (Reason: Pain) Qty: 10 0RF
No Action
atenolol 50 MG tablet
50 mg PO HS
gabapentin 300 MG capsule
300 mg PO QID
albuterol sulfate 1.25 mg/3 mL Solution For Nebulization
1.25 mg INHALATION Q6HPRN PRN (Reason: shortness of breath, wheezing)
cyanocobalamin (vitamin B-12) 1,000 mcg Tablet
1,000 mcg PO DAILY
levothyroxine 75 mcg Tablet
75 mcg PO DAILY
dicyclomine 20 mg Tablet
20 mg PO QID
esomeprazole magnesium 40 mg Capsule,Delayed Release(Dr/Ec)
40 mg PO BID
albuterol sulfate 90 mcg/actuation Hfa Aerosol Inhaler
1 inh INHALATION Q6HPRN PRN (Reason: shortness of breath, wheezing)
duloxetine 60 mg Capsule,Delayed Release(Dr/Ec)
60 mg PO DAILY
armodafinil 150 mg Tablet
150 mg PO DAILY
Prolia 60 mg/mL Syringe
60 mg SC [id number]
topiramate [Trokendi XR] 200 mg Capsule,Extended Release 24hr
200 mg PO DAILY
Aimovig Autoinjector 140 mg/mL Auto-Injector
140 mg SC QMONTH
rpduoddwmp-kamjjghsppkwd-esxn 50-325-40 mg Tablet
1 tab PO Q4H PRN (Reason: migraines)
multivitamin Tablet
1 tab PO DAILY
elderberry fruit 200 mg Capsule
200 mg PO DAILY
cholecalciferol (vitamin D3) 125 mcg (5,000 unit) Tablet
125 mcg PO DAILY
Nurtec ODT 75 mg Tablet,Disintegrating
75 mg PO ONCE PRN (Reason: migraines)
sucralfate 1 gram Tablet
1 g PO PRN PRN (Reason: GERD)
fluticasone propionate 50 mcg/actuation [place],Suspension
1 spray INTRANASAL DAILY
loratadine [Claritin] 10 mg Tablet
10 mg PO DAILY
aspirin 81 mg Tablet,Delayed Release (Dr/Ec)
81 mg PO DAILY
acetaminophen [Tylenol Extra Strength] 500 mg tablet
1,000 mg PO Q6H PRN (Reason: pain)
sumatriptan succinate 100 mg Tablet
100 mg PO PRN PRN (Reason: Migraine)
naproxen 500 mg Tablet
500 mg PO PRN PRN (Reason: Migraines)
mupirocin 2 % ointment
1 applic topical BID Qty: 1 0RF
meloxicam 15 mg tablet
15 mg PO DAILY Qty: 14 0RF
Rx Instructions:
take with food
post-op
dexamethasone 4 mg tablet
4 mg PO BID Qty: 6 0RF
Rx Instructions:
take with food
post-op use only
ondansetron 4 mg tablet,disintegrating
4 mg PO Q6H PRN (Reason: n/v) Qty: 20 0RF
Rx Instructions:
take 1/2h b/f pain med if recurrent nausea
allow to dissolve in mouth w/o water
aspirin 325 mg Tablet
325 mg PO DAILY 28 Days Qty: 28 0RF
docusate sodium 100 mg Capsule
100 mg PO BID 28 Days Qty: 56 0RF
pregabalin 75 mg Capsule
75 mg PO BID 30 Days Qty: 60 0RF
oxycodone 15 mg Tablet
15 mg PO Q4HPRN PRN (Reason: severe pain) 7 Days Qty: 14 0RF
oxycodone 10 mg Tablet
10 mg PO Q4HPRN PRN (Reason: moderate pain) 7 Days Qty: 30 0RF
sennosides [Matilda-stella] 8.6 mg Tablet
17.2 mg PO BID PRN (Reason: constipation) 28 Days Qty: 60 0RF
Referrals:
Roxy Naylor CRNP [Family Provider, General]
Stand Alone Forms: Return to Work
Activity Restrictions/Additional Instructions:
RETURN TO THE EMERGENCY DEPARTMENT WITH ANY INTRACTABLE PAIN, WEAKNESS OR NUMBNESS IN LOWER EXTREMITIES, LOSS OF BOWEL/BLADDER CONTROL, NUMBNESS IN GROIN, FEVER/CHILLS, WORSENING IN CURRENT SYMPTOMS, OR ANY OTHER CONCERNS
- Please continue to take Tylenol and/or Motrin as needed for pain. You can apply lidocaine patches. A prescription for tramadol has been sent to your pharmacy. You can take this for intractable pain�this may cause drowsiness you should not take
prior to driving. You should not take tramadol in addition to the Percocet you have at home.
- A 5-day course of steroids to your pharmacy.
- Follow-up with your spine surgeon on Friday as scheduled.
Monitor your symptoms very closely and return to the emergency department with any acute worsening/new symptoms or any other concerns
Interventions
Interventions:
*Risk Screen - Suicide Last Done: 02/10/25 21:13
*General Assessment Last Done: 02/11/25 02:04
*Neglect/Abuse Screening Last Done: 02/11/25 02:04
*ED- Fall Risk Assessment Last Done: 02/11/25 02:04
*ED COVID-19 Vaccine History Last Done: 02/11/25 02:04
*Nursing Disposition Last Done: 02/11/25 02:04
ED-Musculoskeletal Assessment Last Done: 02/10/25 23:21
Discharge Date and Time
Discharge Date/Time: 02/11/25 01:20
Print Language: NAURUAN
[2025-02-10 23:03] VITALS: BMI 23.6
[2025-02-10] MEDS: TYLENOL 650 MG PO (23:04)
[2025-02-10] MEDS: TORADOL 15 MG IM (23:06)
[2025-02-11] MEDS: ULTRAM 50 MG PO (00:11)
[2025-02-11 00:12] VITALS: BP 130/54
[2025-02-11 02:04] VITALS: BP 130/72
== END 2025-02-11 01:20 | disposition home or self-care (01) ==
LOC: EMR 21:08
PROVIDERS: EMERGENCY PHYSICIAN Emergency Medicine; FAMILY PHYSICIAN Nurse Practitioner
DX: M54.50 Low back pain, unspecified (principal); M79.604 Pain in right leg; E03.9 Hypothyroidism, unspecified; E78.00 Pure hypercholesterolemia, unspecified; G47.30 Sleep apnea, unspecified; J45.909 Unspecified asthma, uncomplicated; Z86.73 Personal history of transient ischemic attack (TIA), and cerebral infarction without residual deficits
CPT/HCPCS: 96372; 99284; 72100

== ENCOUNTER → 2025-03-03 15:28 | Outpatient (REF) | payer SELFPAY | LOC: PAVMRI 15:28 | PROVIDERS: ATTENDING PHYSICIAN Neurological Surgery; FAMILY PHYSICIAN Nurse Practitioner | DX: M51.360 Other intervertebral disc degeneration, lumbar region with discogenic back pain only (principal); M47.817 Spondylosis without myelopathy or radiculopathy, lumbosacral region; M96.1 Postlaminectomy syndrome, not elsewhere classified | CPT/HCPCS: 72148 ==